=== PATIENT | female | born 1950 | race African-American/Black ===

== ENCOUNTER 2016-02-22 05:29 | Emergency (ER) | payer MEDICARE, OTHER ==
[~2016-02-22] VITALS: Ht 160 cm; Wt 91.6 kg
[~2016-02-22 05:29] MED LIST: AMARYL1 MG ORAL; ASPIRIN81 M3 PO; DOCUSATE SODIU100 MG ORAL; FUROSEMIDE20 M1 ORAL; GABAPENTIN100 MG ORAL; GABAPENTIN600 MG ORAL; LASIX40 MG ORAL; LIPITOR80 MG ORAL; METFORMIN HCL500 M1 ORAL; NAPROSYN500 M1 ORAL; NORCO 5-325 TA1 EACH ORAL; POTASSIUM CHLO10 MEQ ORAL; SPIRIVA18 MCG INH; UNOBMED; ZITHROMAX250 MG ORAL
[2016-02-22] MEDS ORDERED: NKM (05:39)
[2016-02-22] MEDS ORDERED: Bactrim DS (160mg/800mg) tab ORAL ONE (06:00)
[2016-02-22] MEDS ORDERED: TRAMADOL HCL50 MG ORAL (06:11)
[2016-02-22] MEDS ORDERED: LIDOCAINE VISCO20 ML TOPIC (06:11)
[2016-02-22] MEDS ORDERED: BACTRIM DS TAB1 EAC1 ORAL (06:11)
[2016-02-22 06:24] VITALS: BP 160/97
--- NOTE | 2016-02-24 03:00 | Emergency Room Report ---
History of Present Illness General Chief Complaint: Toothache Source: Patient Present Illness HPI Patient presents with L wisdom tooth pain. Has been on antibiotics. No fever. Some swelling L jaw. Pain 10/10, aching, constant. Had some relief with [facility] in past. States tooth is complicated with impacted roots. Use of different name. No NVD, LOPEZ. Chronic back problems. Allergies: Coded Allergies: ALBUTEROL (Verified Allergy, Unknown, 02/22/16) CODEINE (Verified Allergy, Unknown, 02/22/16) MORPHINE (Verified Allergy, Unknown, 02/22/16) PENICILLINS (Verified Allergy, Unknown, 02/22/16) Patient History Past Medical History: see triage record Social History: Denies: smoking Social History Narrative mary MAYER/EMT Now: No Nursing Documentation-PMH Hx Cardiac Problems: Yes - CHF Hx Hypertension: Yes Hx Diabetes: Yes Hx Cancer: No Hx Gastrointestinal Problems: No Hx Dialysis: No Hx Neurological Problems: No - cervical cancer in 70's Hx Cerebrovascular Accident: No Hx Seizures: No Review of Systems Constitutional: Denies: chills, fever ENT: Reports: see HPI Cardiovascular: Denies: chest pain Musculoskeletal: Denies: joint pain Skin: Denies: rash Neurological: Reports: see HPI, Denies: headache Physical Exam Vital Signs Date Time Temp Pulse Resp B/P Pulse Ox O2 Delivery O2 Flow Rate FiO2 02/22/16 05:35 98.2 106 18 160/97 95 Room Air General Appearance: well appearing, no apparent distress Head: normocephalic, atraumatic Eyes: bilateral eye PERRL, bilateral eye normal inspection ENT: hearing grossly normal, normal voice, other - R wisdom tooth with tenderness, slight swelling Neck: full range of motion, supple Respiratory: normal inspection, no respiratory distress, speaking full sentences Cardiovascular #1: regular rate, rhythm Cardiovascular #2: 2+ radial (L) Musculoskeletal: gait/station normal, normal range of motion Neurologic: alert, normal gait, grossly normal Psychiatric: mood/affect normal - slight pressured for pain meds Skin: no rash Medical Decision Making Diagnostic Impression: Primary Impression: Tooth abscess ER Course Patient with tooth pain and swelling. Clinical diagnosis of tooth abscess. Antibiotics and analgesics indicated. Cures negative (issue with name). Patient stable for outpatient observation and treatment. Last Vital Signs Date Time Temp Pulse Resp B/P Pulse Ox O2 Delivery O2 Flow Rate FiO2 02/22/16 06:24 98.2 18 160/97 95 Room Air 02/22/16 05:35 106 Status: improved Disposition: HOME, SELF-CARE Condition: Stable Scripts Tramadol Hcl* (ULTRAM*) 50 Mg Tablet 50 MG ORAL Q6H Y for For Pain, #16 TAB 0 Refills Prov: Gabe Cook M.D. 02/22/16 Lidocaine HCl (Lidocaine HCl Viscous) 100 Ml Solution 1 APPLIC TOPIC Q6HR, #60 ML Prov: Gabe Cook M.D. 02/22/16 Trimethoprim/Sulfamethoxazole 160/800* (BACTRIM DS TABLET*) 1 Each Tablet 1 TAB ORAL TWICE A DAY, #14 TAB Prov: Gabe Cook M.D. 02/22/16 Referrals: NOT CHOSEN IPA/,REFERRING Patient Instructions: Dental Pain Additional Instructions: Have the tooth extracted. Tylenol OK also. Apply the lidocaine to the gum at the bottom of the tooth with a Q-tip. Gabe Cook M.D. Feb 24, 2016 03:00
== END 2016-02-22 06:24 | disposition home or self-care (01) ==
LOC: EMR 06:10
DX: K04.7 Periapical abscess without sinus (principal); I10 Essential (primary) hypertension; E11.9 Type 2 diabetes mellitus without complications; I50.9 Heart failure, unspecified; Z88.6 Allergy status to analgesic agent; Z88.0 Allergy status to penicillin
CPT/HCPCS: 99282

== ENCOUNTER 2017-06-04 06:52 | Emergency (ER) | payer MEDICARE ==
[~2017-06-04] VITALS: Ht 160 cm; Wt 98.4 kg
[~2017-06-04 06:52] MED LIST changes: +BACTRIM DS TAB1 EAC1 ORAL; +LIDOCAINE VISCO20 ML TOPIC; +NKM; +TRAMADOL HCL50 MG ORAL
[2017-06-04 08:02] LABS: BASOPHILS % (AUTO) 1.2 % (0.0-2.0); EOSINOPHILS % (AUTO) 4.3 % (0.0-3.0); HEMATOCRIT 43.7 % (37.0-47.0); HEMOGLOBIN 14.4 G/DL (12.0-16.0); LYMPHOCYTES % (AUTO) 37.5 % (20.0-45.0); MEAN CORPUSCULAR VOLUME 82 FL (80-99); MONOCYTES % (AUTO) 6.3 % (1.0-10.0); NEUTROPHILS % (AUTO) 50.7 % (45.0-75.0); PLATELET COUNT 244 K/UL (150-450); RED BLOOD COUNT 5.31 M/UL (4.20-5.40); RED CELL DISTRIBUTION WIDTH 13.6 % (11.6-14.8)
--- NOTE | 2017-06-04 08:35 | Emergency Room Report ---
History of Present Illness General Chief Complaint: Palpitations Source: Patient Present Illness HPI Patient presents with complaints of shortness of breath Also weakness Patient has some minimal midsternal heaviness as well yesterday which has resolved Patient has shooting pain in both of her knees And complains of swelling in both of her ankles Patient describes recent significant family issues including recent deaths in the family Patient denies any vomiting or diarrhea She does describe exertional dyspnea Denies any change with position Allergies: Coded Allergies: ALBUTEROL (Verified Allergy, Unknown, 02/22/16) CODEINE (Verified Allergy, Unknown, 02/22/16) MORPHINE (Verified Allergy, Unknown, 02/22/16) PENICILLINS (Verified Allergy, Unknown, 02/22/16) Patient History Past Medical History: see triage record Pertinent Family History: none Reviewed Nursing Documentation: PMH: Agreed; PSxH: Agreed Nursing Documentation-PMH Hx Cardiac Problems: Yes - CHF Hx Hypertension: Yes Hx Diabetes: Yes Hx Cancer: No Hx Gastrointestinal Problems: No Hx Dialysis: No Hx Neurological Problems: No - cervical cancer in 70's Hx Cerebrovascular Accident: No Hx Seizures: No Review of Systems All Other Systems: negative except mentioned in HPI Physical Exam Vital Signs Date Time Temp Pulse Resp B/P (MAP) Pulse Ox O2 Delivery O2 Flow Rate FiO2 06/04/17 06:57 98.0 95 16 177/85 91 Room Air 98.1 Sp02 EP Interpretation: reviewed, normal General Appearance: well appearing, no apparent distress Head: normocephalic, atraumatic Eyes: bilateral eye PERRL, bilateral eye EOMI ENT: hearing grossly normal, normal pharynx, TMs + canals normal, uvula midline Neck: full range of motion, supple, no meningismus, no bony tend Respiratory: no respiratory distress, no retraction, no accessory muscle use, crackles Cardiovascular #1: normal peripheral pulses, regular rate, rhythm, no gallop, no JVD, no murmur, edema Gastrointestinal: normal bowel sounds, non tender, soft, no mass, no organomegaly, non-distended, no guarding, no hernia, no pulsatile mass, no rebound Genitourinary: no CVA tenderness Musculoskeletal: normal inspection Neurologic: oriented x3, responsive, broadband engineer III-XII nml as tested, motor strength/ tone normal, sensory intact Psychiatric: mood/affect normal Skin: normal color, no rash, warm/dry, palpation normal Lymphatic: normal inspection, no adenopathy Medical Decision Making Diagnostic Impression: Primary Impression: ACS (acute coronary syndrome) ER Course Patient is a fairly complex patient with multiple differential to consideration including but not limited to cardiac cardiopulmonary and vascular emergencies Patient's blood work and imaging are appropriate at this time patient remains pain-free therefore nitroglycerin was held Given the patient's comorbidities and complaints patient is admitted for further care Secondary to insurance purposes patient is transferred for further care Labs Test 06/04/17 07:41 White Blood Count 5.0 K/UL (4.8-10.8) Red Blood Count 5.31 M/UL (4.20-5.40) Hemoglobin 14.4 G/DL (12.0-16.0) Hematocrit 43.7 % (37.0-47.0) Mean Corpuscular Volume 82 FL (80-99) Mean Corpuscular Hemoglobin 27.1 PG (27.0-31.0) Mean Corpuscular Hemoglobin Concent 32.9 G/DL (32.0-36.0) Red Cell Distribution Width 13.6 % (11.6-14.8) Platelet Count 244 K/UL (150-450) Mean Platelet Volume 8.4 FL (6.5-10.1) Neutrophils (%) (Auto) 50.7 % (45.0-75.0) Lymphocytes (%) (Auto) 37.5 % (20.0-45.0) Monocytes (%) (Auto) 6.3 % (1.0-10.0) Eosinophils (%) (Auto) 4.3 % (0.0-3.0) Basophils (%) (Auto) 1.2 % (0.0-2.0) Prothrombin Time 10.3 SEC (9.30-11.50) Prothromb Time International Ratio 1.0 (0.9-1.1) Activated Partial Thromboplast Time 28 SEC (23-33) Sodium Level 140 MMOL/L (136-145) Potassium Level 3.9 MMOL/L (3.5-5.1) Chloride Level 102 MMOL/L (98-107) Carbon Dioxide Level 29 MMOL/L (21-32) Anion Gap 9 mmol/L (5-15) Blood Urea Nitrogen 11 mg/dL (7-18) Creatinine 0.7 MG/DL (0.55-1.30) Estimat Glomerular Filtration Rate > 60 mL/min (>60) Glucose Level 160 MG/DL (74-106) Calcium Level 8.9 MG/DL (8.5-10.1) Total Bilirubin 0.4 MG/DL (0.2-1.0) Aspartate Amino Transf (AST/SGOT) 26 U/L (15-37) Alanine Aminotransferase (ALT/SGPT) 44 U/L (12-78) Alkaline Phosphatase 84 U/L (46-116) Total Creatine Kinase 145 U/L (26-308) Creatine Kinase MB 2.1 NG/ML (0.0-3.6) Creatine Kinase MB Relative Index 1.4 Troponin I 0.000 ng/mL (0.000-0.056) Pro-B-Type Natriuretic Peptide 25 pg/mL (0-125) Total Protein 7.9 G/DL (6.4-8.2) Albumin 3.6 G/DL (3.4-5.0) Globulin 4.3 g/dL Albumin/Globulin Ratio 0.8 (1.0-2.7) Lipase 119 U/L (73-393) EKG Diagnostic Results Rate: normal Rhythm: NSR ST Segments: no acute changes Rhythm Strip Diag. Results EP Interpretation: yes Rate: 88 Rhythm: NSR, no PVC's, no ectopy Chest X-Ray Diagnostic Results Chest X-Ray Diagnostic Results : Chest X-Ray Ordered: Yes # of Views/Limited/Complete: 1 View Indication: Chest Pain EP Interpretation: Yes Interpretation: no consolidation, no effusion, no pneumothorax Impression: No acute disease Electronically Signed by: Keturah Matson DO Last Vital Signs Date Time Temp Pulse Resp B/P (MAP) Pulse Ox O2 Delivery O2 Flow Rate FiO2 06/04/17 06:57 98.0 95 16 177/85 91 Room Air 98.1 Status: improved Disposition: XFER SHT-TRM HOSP Condition: Serious Referrals: QUIN MITCHELL (PCP) Keturah Matson DO Jun 04, 2017 08:35
[2017-06-04 08:41] LABS: ANION GAP 9 mmol/L (5-15); BLOOD UREA NITROGEN 11 mg/dL (7-18); CALCIUM 8.9 MG/DL (8.5-10.1); CARBON DIOXIDE 29 MMOL/L (21-32); CHLORIDE 102 MMOL/L (98-107); CREATININE 0.7 MG/DL (0.55-1.30); POTASSIUM 3.9 MMOL/L (3.5-5.1); SODIUM 140 MMOL/L (136-145)
[2017-06-04 08:54] LABS: ALANINE AMINOTRANSFERASE 44 U/L (12-78); ALBUMIN 3.6 G/DL (3.4-5.0); ALBUMIN/GLOBULIN RATIO 0.8 (1.0-2.7); ALKALINE PHOSPHATASE 84 U/L (46-116); ASPARTATE AMINO TRANSFERASE 26 U/L (15-37); BILIRUBIN,TOTAL 0.4 MG/DL (0.2-1.0); CKMB 2.1 NG/ML (0.0-3.6); CREATINE KINASE 145 U/L (26-308)
[2017-06-04] MEDS ORDERED: Iodoral PO (09:08)
[2017-06-04 09:17] VITALS: BP 151/85
--- NOTE | 2017-06-04 10:51 | Diagnostic Imaging Report ---
Indication: Chest pain Comparison: 03/07/2015 A single view chest radiograph was obtained. Findings: Heart is enlarged. The lungs are essentially clear. Bones are slightly osteopenic. Right hemidiaphragm slightly elevated. IMPRESSION: No acute disease.
[2017-06-04 10:56] VITALS: BP 160/87
[2017-06-04 12:45] VITALS: BP 144/84
[2017-06-04 13:10] VITALS: BP 144/84
--- NOTE | 2017-06-04 16:59 | Cardiology Report ---
APPROVED REPORT EKG Measurement Heart [id number] Sinus rhythm with premature atrial complexes Otherwise normal ECG
== END 2017-06-04 13:13 | disposition short-term general hospital (02) ==
LOC: EMR 07:40
DX: I24.9 Acute ischemic heart disease, unspecified (principal); E11.9 Type 2 diabetes mellitus without complications; I11.0 Hypertensive heart disease with heart failure; I50.9 Heart failure, unspecified; Z88.0 Allergy status to penicillin; Z88.5 Allergy status to narcotic agent; Z88.8 Allergy status to other drugs, medicaments and biological substances
CPT/HCPCS: 36415; 71045; 80053; 82550; 82553; 83690; 83880; 84484; 85025; 85610; 85730; 93005

== ENCOUNTER 2017-06-18 01:46 | Emergency (ER) | payer MEDICARE ==
[~2017-06-18] VITALS: Ht 160 cm; Wt 99.8 kg
[~2017-06-18 01:46] MED LIST changes: +Iodoral PO
[2017-06-18] MEDS ORDERED: Ketorolac 30mg Inj IV ONE (02:30)
[2017-06-18 02:41] LABS: APPEARANCE,URINE CLEAR; BILIRUBIN, URINE NEGATIVE (NEGATIVE); COLOR,URINE PALE YELLOW; GLUCOSE, URINE (UA) 1+ (NEGATIVE); KETONES,URINE NEGATIVE (NEGATIVE); LEUKOCYTE ESTERASE ,URINE NEGATIVE (NEGATIVE); NITRITE,URINE NEGATIVE (NEGATIVE); PH,URINE 7 (4.5-8.0); PROTEIN,URINE NEGATIVE (NEGATIVE); UROBILINOGEN,URINE NORMAL MG/DL (0.0-1.0)
[2017-06-18 02:43] LABS: BASOPHILS % (AUTO) 1.3 % (0.0-2.0); EOSINOPHILS % (AUTO) 4.5 % (0.0-3.0); HEMATOCRIT 43.3 % (37.0-47.0); HEMOGLOBIN 13.5 G/DL (12.0-16.0); LYMPHOCYTES % (AUTO) 35.7 % (20.0-45.0); MEAN CORPUSCULAR VOLUME 82 FL (80-99); MONOCYTES % (AUTO) 7.5 % (1.0-10.0); PLATELET COUNT 255 K/UL (150-450); RED BLOOD COUNT 5.28 M/UL (4.20-5.40); RED CELL DISTRIBUTION WIDTH 13.3 % (11.6-14.8); WHITE BLOOD COUNT 6.4 K/UL (4.8-10.8)
[2017-06-18 02:50] LABS: ANION GAP 7 mmol/L (5-15); BLOOD UREA NITROGEN 13 mg/dL (7-18); CALCIUM 9.4 MG/DL (8.5-10.1); CARBON DIOXIDE 29 MMOL/L (21-32); CHLORIDE 102 MMOL/L (98-107); CREATININE 0.8 MG/DL (0.55-1.30); POTASSIUM 3.7 MMOL/L (3.5-5.1); SODIUM 138 MMOL/L (136-145)
[2017-06-18] MEDS ORDERED: cefTRIAXone 1 GM in NS 55 ML IVPB ONE (03:00)
[2017-06-18 03:22] VITALS: BP 157/74
[2017-06-18] MEDS ORDERED: Norco 5mg/325mg tab ORAL ONE (03:30)
[2017-06-18] MEDS ORDERED: GABAPENTIN100 MG ORAL (03:40)
[2017-06-18] MEDS ORDERED: HYDROCODON-ACE1 EA15 ORAL (03:40)
--- NOTE | 2017-06-18 03:41 | Emergency Room Report ---
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 Patient presents with chief complaint of left leg pain. She said her knee and his worse. No trauma. Pain is 9 out of 10. Worse with walking. When she walks she gets short of breath. She was just here 2 weeks ago for shortness of breath and was transfer. She's had multiple workups done and nothing conclusive. Not taking any pain medication at home. No nausea no vomiting. No fever or chills. Allergies: Coded Allergies: ALBUTEROL (Verified Allergy, Unknown, 02/22/16) CODEINE (Verified Allergy, Unknown, 02/22/16) MORPHINE (Verified Allergy, Unknown, 02/22/16) PENICILLINS (Verified Allergy, Unknown, 02/22/16) Patient History Past Medical History: see triage record, old chart reviewed Past Surgical History: other Pertinent Family History: none Social History: Denies: smoking Now: No Immunizations: other Reviewed Nursing Documentation: PMH: Agreed; PSxH: Agreed Nursing Documentation-PMH Hx Cardiac Problems: Yes - CHF Hx Hypertension: Yes Hx Diabetes: Yes Hx Cancer: No Hx Gastrointestinal Problems: No Hx Dialysis: No Hx Neurological Problems: No - cervical cancer in 70's Hx Cerebrovascular Accident: No Hx Seizures: No Review of Systems Eye: Denies: eye pain, blurred vision ENT: Denies: ear pain, nose congestion, throat swelling Respiratory: Reports: shortness of breath; Denies: cough Cardiovascular: Denies: chest pain, palpitations Gastrointestinal: Denies: abdominal pain, diarrhea, nausea, vomiting Musculoskeletal: Reports: joint pain; Denies: back pain Skin: Denies: rash Neurological: Denies: headache, numbness Endocrine: Denies: increased thirst, increased urine Hematologic/Lymphatic: Denies: easy bruising All Other Systems: negative except mentioned in HPI Physical Exam Vital Signs Date Time Temp Pulse Resp B/P (MAP) Pulse Ox O2 Delivery O2 Flow Rate FiO2 06/18/17 01:56 97.6 88 20 155/88 92 Room Air 97.5 vitals normal Sp02 EP Interpretation: reviewed, normal General Appearance: well appearing, no apparent distress, alert Head: normocephalic, atraumatic Eyes: bilateral eye PERRL, bilateral eye EOMI ENT: hearing grossly normal, normal pharynx Neck: full range of motion, supple, no meningismus Respiratory: chest non-tender, lungs clear, normal breath sounds Cardiovascular #1: regular rate, rhythm, no murmur Gastrointestinal: normal bowel sounds, non tender, no mass, no organomegaly, no bruit, non-distended Musculoskeletal: back normal, tender - diffuse pain to left knee and lower extremity. Neurologic: alert, oriented x3 Psychiatric: mood/affect normal Skin: warm/dry Medical Decision Making Diagnostic Impression: Primary Impression: Dyspnea Qualified Codes: R06.09 - Other forms of dyspnea Additional Impression: Peripheral neuropathy ER Course She present with exacerbation of chronic pain. No evidence of ACS, PE, dissection. No evidence of infection or DVT. We'll discharge home. Lab Results Impression labs unremarkable Chest X-Ray Diagnostic Results Chest X-Ray Diagnostic Results : Chest X-Ray Ordered: Yes # of Views/Limited/Complete: 1 View Indication: Shortness of Breath EP Interpretation: Yes Interpretation: no consolidation, no effusion, no pneumothorax, no acute cardiopulmonary disease Impression: No acute disease Electronically Signed by: Dash Fernando MD Last Vital Signs Date Time Temp Pulse Resp B/P (MAP) Pulse Ox O2 Delivery O2 Flow Rate FiO2 06/18/17 03:33 97.6 06/18/17 03:22 88 21 157/74 94 Room Air Status: improved Disposition: HOME, SELF-CARE Condition: Stable Scripts Gabapentin* (GABAPENTIN*) 100 Mg Capsule 100 MG ORAL THREE TIMES A DAY, #90 CAP Prov: DASH FERNANDO M.D. 06/18/17 Hydrocodone/Acetaminophen 5-325* (HYDROCODONE/ACETAMINOPHEN 5-325*) 1 Each Tablet 1 TAB ORAL Q6H PRN for For Pain, #15 TAB 0 Refills Prov: DASH FERNANDO M.D. 06/18/17 Additional Instructions: Follow-up with your doctor in 7 days. Return if worse. DASH FERNANDO M.D. June 18, 2017 03:41
[2017-06-18 03:47] VITALS: BP 157/74
[2017-06-18] MEDS ORDERED: NITROFURANTOIN100 M2 ORAL (03:47)
--- NOTE | 2017-06-18 07:11 | Diagnostic Imaging Report ---
EXAM: XR Chest, 1 View. CLINICAL HISTORY: SOB TECHNIQUE: Frontal view of the chest. COMPARISON: 06/04/17 FINDINGS: Lungs: Low lung volumes. No airspace consolidation. Mild pulmonary vascular congestion. Mild bibasilar atelectasis. Pleural spaces: Probable small to moderate sized bilateral pleural effusions. No evidence of pneumothorax. Heart: Cardiac silhouette is unchanged. Mediastinum: No mediastinal widening or shift. Bones: Unremarkable. No acute fracture. IMPRESSION: Low lung volumes, with bilateral pleural effusions and bibasilar atelectasis. No definite airspace consolidation.
== END 2017-06-18 03:47 | disposition home or self-care (01) ==
LOC: EMR 02:30
DX: R06.00 Dyspnea, unspecified (principal); I11.0 Hypertensive heart disease with heart failure; I50.9 Heart failure, unspecified; G62.9 Polyneuropathy, unspecified; G89.29 Other chronic pain; E11.9 Type 2 diabetes mellitus without complications; M79.605 Pain in left leg; Z88.5 Allergy status to narcotic agent; Z88.0 Allergy status to penicillin; Z88.8 Allergy status to other drugs, medicaments and biological substances
CPT/HCPCS: 36415; 71045; 80048; 81003; 83880; 84484; 85025; 85379; 87086; 87181; 96374; 96375; 99284; J0696; J1885